=== PATIENT | female | born 1950 | race Hispanic/Latino ===

== ENCOUNTER 2018-01-07 00:32 | Emergency (ER) | payer MEDICARE, OTHER ==
[2018-01-07 00:55] VITALS: BP 125/70; TEMP 97.9
[2018-01-07] MEDS ORDERED: Tetanus/Diphtheria Toxoids 0.5 ml Syringe IM ONE ×2 (01:01→01:30)
--- NOTE | 2018-01-07 01:03 | C.PDOC ---
History Of Present Illness 67 yo female come in for evaluation of Right index laceration sustained [employer]. Pt sts, " picked up broken lamp on street". Otherwise, pt denies fever, chills, obvious deformity, bleeding, weakness, sensory or vascular deficits to injured finger. Ambulate to Ed for evaluation, not in any apparent distress. Time Seen by Provider: 01/07/18 00:38 Chief Complaint (Nursing): Abnormal Skin Integrity History Per: Patient Onset/Duration Of Symptoms: Sudden Onset Past Medical History Reviewed: Historical Data, Nursing Documentation, Vital Signs Vital Signs: Last Vital Signs Temp 97.9 F 01/07/18 00:52 Pulse 73 01/07/18 01:35 Resp 18 01/07/18 01:35 BP 125/70 01/07/18 00:52 Pulse Ox 98 01/07/18 01:35 - Medical History PMH: HTN Family History: States: No Known Family Hx - Social History Hx Alcohol Use: No Hx Substance Use: No - Immunization History Hx Tetanus Toxoid Vaccination: No Review Of Systems Except As Marked, All Systems Reviewed And Found Negative. Constitutional: Negative for: Fever, Chills Musculoskeletal: Negative for: Hand Pain Skin: Positive for: Lesions Neurological: Negative for: Weakness, Numbness Physical Exam - Physical Exam Appears: Well, Non-toxic, No Acute Distress Skin: Normal Color, Warm, No Rash, Other (superificial laceration U-shape 1cm length to palmar aspect Right 2nd distal phalanx. No wound FB, no wound discharges.) Extremity: Normal ROM (Right index), No Tenderness, Capillary Refill (less than 2sec to Right index), No Deformity, No Swelling DTR: Bicep (R): 2+, Tricep (R): 2+ Neurological/Psych: Oriented x3, Normal Speech, Normal Motor, Normal Sensation ED Course And Treatment O2 Sat by Pulse Oximetry: 96 Progress Note: On re-eval, pt is afebrile, hemodynamicaly stable. Ambulatoyr in ED. Right hand: laceration to Right index irrigated, closed with skin adhesice. FAROM, no neurovascular deficits. tetanus given. Pt advised. ref. to f/u with PMD in 2 days for wound check. return if any new changes. Laceration - Laceration Repair Right index Wound Length (In cm): 1cm Description Of Wound: Clean (U-shape, superficial) Wound Examination: Irrigated With Saline, No FB With Wound Exploration, No Tendon Injury With Wound Exploration Wound Closure: Steri Strips, Skin Glue Wound Complexity: Simple Disposition Counseled Patient/Family Regarding: Diagnosis, Need For Followup, Rx Given - Disposition Referrals: [facility] [Outside] Disposition: HOME/ ROUTINE Disposition Time: :01 Condition: STABLE Additional Instructions: keep wound clean, dry for 2-3 days light duty to injured finger Follow up with PMD in 2 days for wound check return to ED if any worsening or new changes. Instructions: Laceration Repair With Glue (DC) Forms: [employer] (Panamanian) - Clinical Impression Clinical Impression: Laceration of finger
[2018-01-07 01:36] VITALS: PULSE 73; RESP 18
[2018-01-07 06:51] VITALS: O2SAT 96
== END 2018-01-07 01:37 | disposition home or self-care (01) ==
LOC: C.ER 00:32
DX: S61.210A Laceration without foreign body of right index finger without damage to nail, initial encounter (principal); W45.8XXA Other foreign body or object entering through skin, initial encounter; Y92.410 Unspecified street and highway as the place of occurrence of the external cause; I10 Essential (primary) hypertension; Z23 Encounter for immunization